=== PATIENT | female | born 1985 | race Hispanic/Latino ===

== ENCOUNTER 2020-08-20 10:40 | Emergency (ER) | payer OTHER ==
[2020-08-20] MEDS ORDERED: Dexamethasone 10 MG/ML VIAL ONE (11:14)
[2020-08-20] MEDS ORDERED: Acetaminophen 500 MG TAB ONE (11:14)
[2020-08-20] MEDS ORDERED: Ketorolac Tromethamine 15 MG/ML VIAL ONE (11:14)
== END 2020-08-20 11:55 | disposition home or self-care (01) ==
LOC: CSHERS 10:40
DX: G89.18 Other acute postprocedural pain (principal); H92.03 Otalgia, bilateral
CPT/HCPCS: 96372; 99282; J1100; J1885

== ENCOUNTER 2021-10-29 19:24 | Emergency (ER) | payer OTHER ==
[2021-10-29 20:25] LABS: Bilirubin 1+ (Negative); Blood, Urine 10 (Negative); Glucose, Urine (Dipstick) Normal (Negative); Ketone, Urine 150 mg/dL (Negative); Leukocyte 100 (Negative); Nitrite Negative (Negative); Protein, Urine (Dipstick) 15 mg/dl (Neg-Trace); Urobilinogen Normal mg/dL (Less than 2)
[2021-10-29 20:27] LABS: Pregnancy Test - Urine (BHCG) POSITIVE (Negative); Pregu Control Background? CLEAR/WHITE (CLR/WHITE); Pregu Control Bar Appear? YES (CONTROL BAR)
[2021-10-29 20:28] LABS: Clarity Cloudy (Clear)
[2021-10-29] MEDS ORDERED: Ondansetron ODT 4 MG TAB ONE (20:29)
[2021-10-29] MEDS ORDERED: Dicyclomine 20 MG TAB ONE (20:30)
[2021-10-29 20:31] LABS: #Eosinphils 0.1 10x3/uL (0.0-0.5); #Monocytes 0.5 10x3/uL (0.0-1.1); #Neutrophils 5.4 10x3/uL (1.5-8.4); %Basophils 0.2 % (0.0-2.0); %Eosinophils 0.6 % (0.0-6.0); %Lymphocytes 27.4 % (18.0-47.0); %Monocytes 6.3 % (0.0-10.0); %Neutrophils 65.3 % (40.0-75.0); Hemoglobin 14.5 g/dL (12.0-15.5); Mean Corpuscular HGB CONC 34.2 g/dL (32.0-36.0); Mean Corpuscular Hemoglobin 31.5 pg (27.0-33.0); Mean Corpuscular Volume 92.2 fl (81.6-98.3); Mean Platelet Volume 10.2 fl (7.4-10.4); Platelet Count 236 10x3/uL (150-450); RBC Distribution Width 12.7 % (11.5-14.5); White Blood Cell (WBC) Count 8.4 10x3/uL (3.5-10.5)
[2021-10-29 20:39] LABS: Bacteria/HPF 2+ HPF (None Seen); Trichomonas/HPF 1+ HPF (None Seen)
[2021-10-29 20:40] LABS: Mucous/LPF 2+ LPF (<2+)
[2021-10-29 20:47] LABS: ALT (SGPT) 27 U/L (8-55); AST (SGOT) 16 U/L (5-34); Albumin 4.1 g/dL (3.5-5.0); Alkaline Phosphatase 74 U/L (40-110); Anion Gap 13 mmol/L (10-20); BUN (Urea Nitrogen) 13 mg/dL (7.0-18.7); Bilirubin, Total 0.5 mg/dL (0.2-1.2); Calc. Creatinine Clearance 0 mL/min (70-130); Carbon Dioxide 23 mmol/L (22-29); Chloride 106 mmol/L (98-107); Estimated GFR 103; Globulin 3.2 g/dL (2.4-3.5); Glucose 75 mg/dL (70-105); Lipase 28 U/L (8-78); Potassium 3.9 mmol/L (3.5-5.1); Protein, Total 7.3 g/dL (6.0-8.3); Sodium 138 mmol/L (136-145)
== END 2021-10-29 23:01 | disposition home or self-care (01) ==
LOC: CSHERS 19:24
DX: O26.891 Other specified pregnancy related conditions, first trimester (principal); R10.84 Generalized abdominal pain; R11.0 Nausea; Z3A.01 Less than 8 weeks gestation of pregnancy
CPT/HCPCS: 36415; 76856; 80053; 81003; 81015; 81025; 83690; 84702; 85025; Q0162

== ENCOUNTER 2021-11-21 12:02 | Day surgery (SDC) | payer OTHER ==
[2021-11-21 12:24] VITALS: BMI 40.7
[2021-11-21] MEDS ORDERED: CeleCOXIB 100 MG CAP ONE (12:25)
[2021-11-21 12:41] LABS: Hemoglobin 14.3 g/dL (12.0-15.5); Mean Corpuscular HGB CONC 34.4 g/dL (32.0-36.0); Mean Corpuscular Volume 93.1 fl (81.6-98.3); Platelet Count 271 10x3/uL (150-450); RBC Distribution Width 12.3 % (11.5-14.5); Red Blood Cell (RBC) Count 4.47 10x6/uL (3.90-5.03); White Blood Cell (WBC) Count 8.6 10x3/uL (3.5-10.5)
[2021-11-21] MEDS ORDERED: Fentanyl 100 MCG/2 ML VIAL ONE (12:44)
[2021-11-21] MEDS ORDERED: PROPOFOL 20 ML ONE (12:44)
[2021-11-21] MEDS ORDERED: Midazolam HCl 2 mg/2 ml Vial ONE (12:45)
[2021-11-21] MEDS ORDERED: Lidocaine 4% PF 5 ML AMP ONE (12:45)
[2021-11-21] MEDS ORDERED: Ondansetron PF 4 MG/2 ML Vial ONE (12:45)
[2021-11-21] MEDS ORDERED: Dexamethasone 4 mg/ml Vial ONE (12:45)
[2021-11-21] MEDS ORDERED: CEFAZOLIN 2 GM VIAL ONE (13:02)
[2021-11-21] MEDS ORDERED: Misoprostol 200 MCG TAB PO SCH (14:00)
== END 2021-11-21 15:40 | disposition home or self-care (01) ==
LOC: CSHSDC 12:02
PROVIDERS: ATTEND Obstetrics & Gynecology
PROC: 10D17ZZ Extraction of Products of Conception, Retained, Via Natural or Artificial Opening (ICD-10-PCS; principal; 2021-11-21)
DX: O02.1 Missed abortion (principal); Z20.822 Contact with and (suspected) exposure to COVID-19; E66.01 Morbid (severe) obesity due to excess calories
CPT/HCPCS: 36415; 85027; 86850; 86900; 86901; 87811; 88305; J0690; J1100; J2250; J2405; J2704; J3010